=== PATIENT | male | born 1995 | race Hispanic/Latino ===

== ENCOUNTER 2018-01-27 09:48 | Emergency (ER) | payer OTHER | END 2018-01-27 10:24 | disposition home or self-care (01) | LOC: M ED 09:48 | DX: S39.92XA Unspecified injury of lower back, initial encounter (principal); X50.0XXA Overexertion from strenuous movement or load, initial encounter; Y92.39 Other specified sports and athletic area as the place of occurrence of the external cause | CPT/HCPCS: 99283 ==

== ENCOUNTER 2018-09-09 12:37 | Emergency (ER) | payer OTHER ==
[~2018-09-09] VITALS: Ht 177.8 cm; Wt 90.9 kg
[~2018-09-09 12:37] MED LIST: CYCL10TA PO; PRED10TA2 PO
[2018-09-09] MEDS ORDERED: NAPROXEN 250 MG TAB PO ONE (19:00)
[2018-09-09] MEDS ORDERED: LIDOCAINE 5% (LIDODERM) PATCH TD ONE (19:00)
[2018-09-09] MEDS ORDERED: NAPR-837 PO (19:02)
[2018-09-09] MEDS ORDERED: ROBA500T PO (19:02)
[2018-09-09 19:45] VITALS: BP 116/72
[2018-09-10] MEDS ORDERED: **NOTE PATIENT COMMENT** MISC XX SCH (07:00)
== END 2018-09-09 19:52 | disposition home or self-care (01) ==
LOC: M ED 12:37
DX: S39.012A Strain of muscle, fascia and tendon of lower back, initial encounter (principal); V43.52XA Car driver injured in collision with other type car in traffic accident, initial encounter; Y92.511 Restaurant or cafe as the place of occurrence of the external cause; M51.9 Unspecified thoracic, thoracolumbar and lumbosacral intervertebral disc disorder